=== PATIENT | female | born 1970 ===

== ENCOUNTER 2016-12-15 17:37 | Emergency (ER) | payer MEDICAID ==
[2016-12-15 17:46] VITALS: BP 118/56; PULSE 73; RESP 16; TEMP 97.1; O2SAT 97
--- NOTE | 2016-12-15 17:58 | ED PDOC ---
Lower Extremity Pain/Injury Chief Complaint (Provider): Left knee pain History Per: Patient History/Exam Limitations: no limitations Onset/Duration Of Symptoms: Days (x 1 week) Current Symptoms Are (Timing): Still Present Additional Complaint(s): Rosalva is a 46 y/o female who presents to the ED for evaluation of left knee pain and swelling, ongoing for 1 week. Denies associated injury or trauma to the knee. Patient saw her PMD last week, and has been taking Diclofenac with minimal relief. Pain is worse with walking or movement. PMD: Dr. Shanda Hall <Linnea Pimentel - Last Filed: 12/15/16 18:51> <Edin Chiang - Last Filed: 12/16/16 20:50> Time Seen by Provider: 12/15/16 17:49 Chief Complaint (Nursing): Lower Extremity Problem/Injury Past Medical History Reviewed: Historical Data, Nursing Documentation, Vital Signs Vital Signs: Last Vital Signs Temp 97.1 F L 12/15/16 17:43 Pulse 73 12/15/16 17:43 Resp 16 12/15/16 17:43 BP 118/56 L 12/15/16 17:43 Pulse Ox 97 12/15/16 17:43 - Medical History PMH: No Chronic Diseases - Family History Family History: States: Unknown Family Hx <Linnea Pimentel - Last Filed: 12/15/16 18:51> Vital Signs: Last Vital Signs Temp 97.1 F L 12/15/16 17:43 Pulse 73 12/15/16 17:43 Resp 16 12/15/16 17:43 BP 118/56 L 12/15/16 17:43 Pulse Ox 97 12/15/16 18:55 <Edin Chiang Y - Last Filed: 12/16/16 20:50> - Home Medications Home Medications: Ambulatory Orders Medication Instructions Recorded traMADol [Ultram] 50 mg PO Q6H PRN #20 tab 12/15/16 - Allergies Allergies/Adverse Reactions: Allergies Allergy/AdvReac Type Severity Reaction Status Date / Time No Known Allergies Allergy Verified 12/15/16 17:42 Review of Systems ROS Statement: Except As Marked, All Systems Reviewed And Found Negative Musculoskeletal: Positive for: Leg Pain (Left knee) <Linnea Pimentel - Last Filed: 12/15/16 18:51> Physical Exam - Reviewed Nursing Documentation Reviewed: Yes Vital Signs Reviewed: Yes - Physical Exam Appears: Positive for: Well, Non-toxic, No Acute Distress Head Exam: Positive for: ATRAUMATIC, NORMAL INSPECTION, NORMOCEPHALIC Skin: Positive for: Normal Color, Warm, Dry Eye Exam: Positive for: Normal appearance Neck: Positive for: Normal Extremity: Positive for: Normal ROM. Negative for: Tenderness (bony point tenderness), Deformity Neurologic/Psych: Positive for: Alert, Oriented <Linnea Pimentel - Last Filed: 12/15/16 18:51> - ECG O2 Sat by Pulse Oximetry: 97 (RA) Pulse Ox Interpretation: Normal <Linnea Pimentel - Last Filed: 12/15/16 18:51> Medical Decision Making Medical Decision Making: Time: 17:51 Initial Plan: --Pending X-Ray Left Knee No acute findings on x-ray. (+) DJD changes Scribe Attestation: Documented by Madonna Puentes, acting as a scribe for Linnea Pimentel PA-C Provider Scribe Attestation: All medical record entries made by the Scribe were at my direction and personally dictated by me. I have reviewed the chart and agree that the record accurately reflects my personal performance of the history, physical exam, medical decision making, and the department course for this patient. I have also personally directed, reviewed, and agree with the discharge instructions and disposition. <Linnea Pimentel - Last Filed: 12/15/16 18:51> Disposition - Patient ED Disposition Is Patient to be Admitted: No - Disposition Disposition: Routine/Home Disposition Time: 18:53 <Linnea Pimentel - Last Filed: 12/15/16 18:51> <Edin Chiang Y - Last Filed: 12/16/16 20:50> - Clinical Impression Clinical Impression: Arthritis of knee - Disposition Referrals: Charo Wade MD [Staff Provider] - Condition: GOOD Prescriptions: traMADol [Ultram] 50 mg PO Q6H PRN #20 tab PRN Reason: Pain Instructions: Arthritis (ED) Forms: [facility] (Divehi) Print Language: GEORGIAN
--- NOTE | 2016-12-16 10:42 | RAD ---
PROCEDURE: Left Knee Radiographs. HISTORY: Pain. COMPARISON: None. FINDINGS: BONES: Bone alignment and mineralization are normal. There is no acute fracture or bone destruction. There is mild periarticular bone demineralization. JOINTS: There is severe tricompartmental degenerative osteoarthrosis with large marginal osteophytes, severe reduced medial compartment joint space and subarticular sclerosis, worse in the medial compartment. JOINT EFFUSION: There is a small suprapatellar joint effusion. OTHER FINDINGS: None. IMPRESSION: Severe tricompartmental degenerative osteoarthrosis, worse in the medial compartment. Small suprapatellar joint effusion.
== END 2016-12-15 19:05 | disposition home or self-care (01) ==
LOC: H.ER 17:37
DX: M17.12 Unilateral primary osteoarthritis, left knee (principal)